=== PATIENT | male | born 1940 | race Caucasian/White ===

== ENCOUNTER → 2017-08-31 | Outpatient (CLI) | payer MEDICARE ==
[~2017-08-31] MED LIST: ACET325T14 PO; ALLO100T30 PO; ASPI-515 PO; ATOR40TA78 PO; ERGO500017 PO; METO25TA35 PO; OMEP-110 PO; POTA10TA11 PO; TORS20TA PO; VALS1TAB26 PO
== END ==
LOC: CFH 14:48
PROVIDERS: ATTEND Registered Nurse
DX: J43.2 Centrilobular emphysema (principal)
CPT/HCPCS: 71250

== ENCOUNTER → 2018-02-13 | Outpatient (CLI) | payer MEDICARE | END | disposition home or self-care (01) | LOC: CFH 09:42 | PROVIDERS: ATTEND Internal Medicine Cardiovascular Disease | DX: I08.3 Combined rheumatic disorders of mitral, aortic and tricuspid valves (principal); I10 Essential (primary) hypertension; E11.9 Type 2 diabetes mellitus without complications; F17.210 Nicotine dependence, cigarettes, uncomplicated | CPT/HCPCS: 93306 ==